=== PATIENT | female | born 2000 | race Caucasian/White ===

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

== ENCOUNTER → 2022-12-28 09:24 | Outpatient (BNVA) | payer MEDICAID, SELFPAY | PROVIDERS: Visit Provider Obstetrics & Gynecology | DX: R30.0 Dysuria (principal); N39.0 Urinary tract infection, site not specified | CPT/HCPCS: 81000; 87077; 87086; 87184 ==

== ENCOUNTER → 2023-02-06 09:22 | Outpatient (BNVA) | payer MEDICAID, SELFPAY | PROVIDERS: Visit Provider Obstetrics & Gynecology | DX: R30.0 Dysuria (principal); N92.6 Irregular menstruation, unspecified | CPT/HCPCS: 81025 ==

== ENCOUNTER 2023-05-02 18:53 | Emergency (ER) | payer MEDICAID, SELFPAY ==
[2023-05-02 19:09] VITALS: BP 106/71; PULSE 70; RESP 18; TEMP 36.8; O2SAT 99; BMI 24.3
[2023-05-02 19:26] VITALS: BP 106/65; PULSE 112; RESP 16; O2SAT 100; O2SAT 96
--- NOTE | 2023-05-02 20:15 | W.ED.GENADLT ---
HPI - General Adult General: Chief complaint: General Medical Stated complaint: Medication Withdrawl Time Seen by Provider: 05/02/23 19:20 Source: patient Mode of arrival: ambulatory Limitations: no limitations History of Present Illness: Patient is a 22-year-old female presents to ED today with a complaint of nausea and vomiting. She states nausea and vomiting started over a month ago after she was placed on many new medications from her psychiatrist Dr. Mcgrath. Patient states she was started on cymbalta, lithium, prazosin, trazodone, and propranolol all at the same time. Patient states she takes the prazosin and trazodone at night does not feel like she gets nauseous following these medications and is able to sleep soundly. She has taken the propranolol before class due to anxiety and feels like she tolerates this medication as well. Concerned that symptoms could be coming from either the cymbalta or lithium. Onset (ago): day(s) Severity: moderate Relieving factors: none Exacerbating factors: medication Associated symptoms: Reports nausea and vomiting; Deny chest pain, confusion, dyspnea, headache(s), malaise, rash, palpitations or syncope Treatments prior to arrival: none Review of Systems Const: Denies: fever(s), chills, body aches, fatigue or malaise Eyes: Denies: change in vision or blurry vision Card: Denies: chest pain, palpitations, irregular heart rhythm, lightheadedness, syncope or dyspnea on exertion Resp: Denies: dyspnea, productive cough or pain on inspiration GI: Reports: nausea and vomiting; Denies: abdominal pain, hematemesis, heartburn or diarrhea : Denies: flank pain or dysuria Musc: Denies: neck pain, back pain or joint pain Skin/Breast: Denies: rash Neuro: Denies: headache(s), numbness in extremities, weakness in extremities, sensory changes, lack of coordination, difficulty walking, dizziness, confusion, Slurred speech present, difficulty communicating thoughts or seizure-like activity Psych: Reports: anxiety PFSH ED PFSH: Medical History Psychiatric care Family History Sister Psychiatric illness Borderline personality disorder ADHD Mother Psychiatric illness Borderline personality disorder Cancer ADHD Grandmother Diabetes Grandfather Suicide Denies family history of CAD (coronary artery disease) Chronic kidney disease (CKD) Lung disease Hypertension Stroke Physical Exam Const: COMMON NORMALS: no acute distress, average body habitus, patient oriented x3, no limitations, alert and well nourished Eye: COMMON NORMALS: Equal, round and reactive pupils present and EOMs intact bilaterally GENERAL EYE: appearance normal, both eyes and all related structures and normal light reflex PUPIL: Yes Equal, round and reactive pupils present DIRECT OPHTHALMOSCOPY: Yes normal light reflex Resp: COMMON NORMALS: normal respiratory effort Cardio: COMMON NORMALS: regular rate and regular rhythm RATE: regular rate RHYTHM: regular rhythm GI: COMMON NORMALS: Normal to inspection, nondistended, normoactive bowel sounds present, Soft to palpation, non-tender, No hepatosplenomegaly present and no masses PALPATION: Yes Soft to palpation and Yes No hepatosplenomegaly present Neuro: JAYMIE COMA SCALE: document GCS findings Jaymie coma scale eye opening: Spontaneous Jaymie coma scale verbal response: Orientated Jaymie coma scale motor response: Obey commands Jaymie coma scale total score: 15 COMMON NORMALS: patient oriented x3, CN's II-XII intact bilaterally, moves all extremities, no focal motor deficits, no sensory deficits noted and gait normal SENSORIUM/ORIENTATION: Yes alert Psych: COMMON NORMALS: Normal thought process present and speech normal ACTIVITY/MOTOR BEHAVIOR: Yes appropriate eye contact SPEECH: Yes normal speech MOOD & AFFECT: Yes euthymic mood THOUGHT PROCESS: Normal thought process present THOUGHT CONTENT: Yes Normal thought content present INSIGHT: Good insight present (Psych) JUDGEMENT: Good judgement present (Psych) Course Vital Signs: Vital signs: Vital Signs Temperature 98.3 F 05/02/23 19:09 Pulse Rate 86 05/02/23 21:54 Respiratory Rate 16 05/02/23 21:54 Blood Pressure 106/65 05/02/23 19:26 Pulse Oximetry 97 05/02/23 21:54 Oxygen Delivery Me thod Room Air 05/02/23 19:26 [facility] - General Adult Medical Decision Making Certainly nausea and vomiting could be caused by the Cymbalta or [place] with Llithium obviously having the higher GI side effect profile. Her vital signs are stable blood work is unremarkable. is negative. Her lithium level is subtherapeutic most likely from her vomiting of this medication. Recommend she speak to her psychiatrist Dr. Mcgrath about unwanted side effects and possibly changing/discontinuing medications. Patient states she will contact them tomorrow. Give her a small amount of Zofran she can use until then. Lab Data 05/02/23 20:25 05/02/23 20:25 Laboratory Results WBC 12.65 10^3/uL (4.5-13.0) 05/02/23 20: RBC 4.51 10^6/uL (3.85-5.65) 05/02/23 20: Hgb 12.40 g/dL (12.4-14.8) 05/02/23 20: Hct 38.6 % (36-47) 05/02/23 20: MCV 85.6 fl (85-98) 05/02/23 20: MCH 27.5 pg (27-33) 05/02/23 20: MCHC 32.1 g/dL (30-55) 05/02/23 20: RDW 14.2 % (12.1-15.1) 05/02/23: Plt Count 326 10^3/cmm (157-399) 05/02/23 20: MPV 12.3 fL (7.4-10.4) H 05/02/23 20: Neut % (Auto) 63.0 % 05/02/23 20: Lymph % (Auto) 31.4 % 05/02/23 20:25 [place] % (Auto) 4.3 % 05/02/23 20: Eos % (Auto) 0.5 % 05/02/23: Baso % (Auto) 0.5 % 05/02/23: Neut # (Auto) 7.98 10^3/uL (1.8-8.0) 05/02/23 20: Lymph # (Auto) 4.0 10^3/uL (1.5-6.5) 05/02/23 20: [place] # (Auto) 0.5 10^3/uL (0.2-0.9) 05/02/23 20:25 Eos # (Auto) 0.1 10^3/uL (0.0-0.8) 05/02/23 20: Baso # (Auto) 0.1 10^3/uL (0.0-0.1) 05/02/23 20:25 Nucleated RBC % (auto) 0 % 05/02/23 20: Nucleated RBCs # 0.0 /100WBC 05/02/23 20:25 Sodium 138 mmol/L (136-145) 05/02/23 20:25 Potassium 4.0 mmol/L (3.5-5.1) 05/02/23 20:25 Chloride 102 mmol/L (98-107) 05/02/23 20:25 Carbon Dioxide 24 mmol/L (22-29) 05/02/23 20:25 Anion Gap 16.0 (5-19) 05/02/23 20:25 BUN 9 mg/dL (6-20) 05/02/23 20:25 Creatinine 0.9 mg/dL (0.5-0.9) 05/02/23 20:25 GFR Calculation 79.8 mL/min (90-130) L 05/02/23 20:25 Glucose 86 mg/dL (65-115) 05/02/23 20:25 Calculated Osmolality 284 mOsm/kg (285-295) L 05/02/23 20:25 Calcium 9.0 mg/dL (8.5-10.5) 05/02/23 20:25 Total Bilirubin 0.2 mg/dL (0.15-1.2) 05/02/23 20:25 AST 13 U/L (0-32) 05/02/23 20:25 ALT 10 U/L (0-33) 05/02/23 20:25 Alkaline Phosphatase 60 U/L (35-105) 05/02/23 20:25 Total Protein 7.3 g/dL (6.6-8.7) 05/02/23 20:25 Albumin 4.3 g/dL (3.5-5.2) 05/02/23 20:25 Globulin 3.0 g/dL (1.3-4.6) 05/02/23 20:25 HCG, Qual Negative (Negative) 05/02/23 20:25 Urine Color Yellow (Yellow) 05/02/23 20:40 Urine Appearance Hazy (CLEAR) A 05/02/23 20:40 Urine pH 7 (5-7) 05/02/23 20:40 Ur Specific [place] 1.005 (1.005-1.030) 05/02/23 20:40 Urine Protein Neg (Negative) 05/02/23 20:40 Urine Glucose (UA) Norm (Normal) 05/02/23 20:40 Urine Ketones 1+ (Negative) H 05/02/23 20:40 Urine Blood 3+ (Negative) H 05/02/23 20:40 Urine Nitrate Negative (Negative) 05/02/23 20:40 Urine Bilirubin Neg (Negative) 05/02/23 20:40 Urine Urobilinogen 1 mg/dL (Negative) H 05/02/23 20:40 Ur Leukocyte Esterase Negative (Negative) 05/02/23 20:40 Urine RBC 0-4 /hpf (0-2) H 05/02/23 20:40 Urine WBC None /hpf (0-5) 05/02/23 20:40 Ur Squamous Epith Cells 10-15 /hpf (0-5) H 05/02/23 20:40 Amorphous Sediment Not Reportable 05/02/23 20:40 Urine Bacteria Trace /hpf (NONE) 05/02/23 20:40 [place] 0.1 mmol/L (0.6-1.2) L 05/02/23 20:25 No radiology studies performed this visit Discharge Plan Discharge Patient Disposition: Home Clinical Impression: Adverse effects of medication Qualifiers: Encounter type: initial encounter Qualified Code(s): T50.905A - Adverse effect of unspecified drugs, medicaments and biological substances, initial encounter Condition: Stable Prescriptions: New ondansetron 4 mg tablet,disintegrating 4 mg PO Q8H PRN (Reason: nausea and vomiting) Qty: 10 0RF No Action Pirmella 1-35 mg-mcg tablet 1 tab PO DAILY Qty: 84 3RF Discharge Orders: Discharge ED (Routine); Ordered 05/02/23 Ordered By: Jacqui Johnson Referrals: Juan David Jacobson MD [Primary Care Provider] - Activity Restrictions/Additional Instructions: As we discussed I feel your symptoms most likely are secondary to the [place]. I would recommend contacting your psychiatrist Dr. Mcgrath to discuss discontinuing this medication. Most likely they will want to slowly titrate you off of it. As we discussed we juan a lithium level today but you did not wish to stay for these results. I will try to contact you later this evening when they return. Coding Level of Care Code ED Auto Research Engineer for Emile Lutz
[2023-05-02 20:39] LABS: Basophils # 0.1 10^3/uL (0.0-0.1); Basophils % 0.5 %; Eosinophils # 0.1 10^3/uL (0.0-0.8); Eosinophils % 0.5 %; Hematocrit 38.6 % (36-47); Lymphocytes % 31.4 %; Mean Corpuscular HGB Conc 32.1 g/dL (30-55); Mean Corpuscular Hemoglobin 27.5 pg (27-33); Mean Corpuscular Volume 85.6 fl (85-98); Mean Platelet Volume 12.3 fL (7.4-10.4); Monocytes # 0.5 10^3/uL (0.2-0.9); Monocytes % 4.3 %; Neutrophils # 7.98 10^3/uL (1.8-8.0); Nucleated Red Blood Cells % 0 %; Platelet Count 326 10^3/cmm (157-399); Red Blood Count 4.51 10^6/uL (3.85-5.65); Red Cell Distribution Width 14.2 % (12.1-15.1); White Blood Count 12.65 10^3/uL (4.5-13.0)
[2023-05-02 20:50] LABS: HCG, Serum Qual Negative (Negative)
[2023-05-02 20:59] LABS: Bilirubin Urine Neg (Negative); Blood Urine 3+ (Negative); Glucose Urine UA Norm (Normal); Ketones Urine 1+ (Negative); Nitrate Urine Negative (Negative); Protein Urine Neg (Negative); Specific Gravity, Urine 1.005 (1.005-1.030); Urine Appearance Hazy (CLEAR); Urine Color Yellow (Yellow); Urobilinogen Urine 1 mg/dL (Negative); pH Urine 7 (5-7)
[2023-05-02 21:00] LABS: Add Urine Culture? No; Add Urine Microscopic? YES; Bacteria Urine TRACE /hpf; Leukocyte Esterase Urine Negative (Negative); RBC Urine 0-4 /hpf (0-2)
[2023-05-02 21:00] LABS: Alanine Aminotransferase 10 U/L (0-33); Albumin Level 4.3 g/dL (3.5-5.2); Alkaline Phosphatase 60 U/L (35-105); Aspartate Amino Transferase 13 U/L (0-32); Blood Urea Nitrogen 9 mg/dL (6-20); Carbon Dioxide 24 mmol/L (22-29); Chloride 102 mmol/L (98-107); Glomerular Filtration Rate 79.8 mL/min (90-130); Glucose 86 mg/dL (65-115); Osmolality Calculated 284 mOsm/kg (285-295); Sodium 138 mmol/L (136-145); Total Bilirubin 0.2 mg/dL (0.15-1.2); Total Protein 7.3 g/dL (6.6-8.7)
[2023-05-02 21:24] LABS: Lithium 0.1 mmol/L (0.6-1.2)
[2023-05-02] MEDS: ondansetron 4 MG Tablet PO (21:49)
[2023-05-02 21:54] VITALS: PULSE 86; RESP 16; O2SAT 97
== END 2023-05-02 21:51 | disposition home or self-care (01) ==
PROVIDERS: Emergency Provider Physician Assistant; PCP Family Medicine
DX: R11.2 Nausea with vomiting, unspecified (principal); T50.995A Adverse effect of other drugs, medicaments and biological substances, initial encounter
CPT/HCPCS: 36415; 80053; 80178; 81001; 84703; 85025; 99283; Q0162